=== PATIENT | female | born 1950 | race Caucasian/White ===

== ENCOUNTER 2021-11-04 15:45 | Emergency (ER) | payer SELFPAY ==
[~2021-11-04] VITALS: Wt 80.4 kg
[2021-11-04] MEDS ORDERED: TOPCARE ASPIRIN81 M1 PO (15:55)
[2021-11-04] MEDS ORDERED: COZAAR25 M1 PO (15:55)
[2021-11-04] MEDS ORDERED: NEBIVOLOL HCL5 MG PO (15:55)
[2021-11-04 16:10] LABS: BASO # 0.01 K/mm3 (0.02-0.10); EOS # 0.17 K/mm3 (0.04-0.40); EOS % 3.4 % (1.0-5.0); HEMOGLOBIN 12.9 g/dL (12.5-16.0); LYMPH# 1.77 K/mm3 (1.50-4.00); MEAN CELL VOLUME 92 fl (78-100); MEAN CORPUSCULAR HEMOGLOBIN 30 pg (27-31); MEAN CORPUSCULAR HGB CONC 32 g/dL (33-37); MEAN PLATELET VOLUME 10.1 fl (7.4-10.4); MONO # 0.44 K/mm3 (0.20-0.80); NEU # 2.58 K/mm3 (1.40-6.50); PLATELET COUNT 217 K/mm3 (130-400); RED BLOOD COUNT 4.35 M/mm3 (4.10-5.30); RED CELL DISTRIBUTION WIDTH 14.1 % (11.5-14.5)
[2021-11-04 16:19] LABS: ALBUMIN 3.5 g/dL (3.4-4.8)
[2021-11-04 16:20] LABS: SODIUM 142 mmol/L (136-145)
[2021-11-04 16:21] LABS: CALCIUM 10.1 mg/dL (8.3-10.5)
[2021-11-04 16:22] LABS: GLUCOSE 116 mg/dL (65-105)
[2021-11-04 16:23] LABS: CARBON DIOXIDE 21 mmol/L (23-31)
[2021-11-04 16:27] LABS: AST-SGOT 25 U/L (5-34)
[2021-11-04 16:28] LABS: ALT/SGPT 22 U/L (0-55)
[2021-11-04 16:40] LABS: TROPONIN-I < 0.030 ng/mL (<0.030)
[2021-11-04] MEDS ORDERED: LASIX20 M1 PO ×2 (16:59→17:15)
[2021-11-04] MEDS ORDERED: COZAAR 50MG50 MG/TAB PO (16:59)
[2021-11-04] MEDS ORDERED: MECLIZINE PO ×2 (16:59→17:15)
[2021-11-04] MEDS ORDERED: BYSTOLIC2.5 MG PO ×2 (16:59→17:15)
[2021-11-04] MEDS ORDERED: ZOFRAN ODT4 MG PO ×2 (16:59→17:15)
[2021-11-04 17:00] LABS: TOTAL BILIRUBIN 0.6 mg/dL (0.2-1.2)
[2021-11-04 17:07] VITALS: BP 149/82
[2021-11-04] MEDS ORDERED: LOSARTAN POTASS50 M1 PO (17:15)
== END 2021-11-04 17:08 | disposition home or self-care (01) ==
LOC: ED 15:45
PROVIDERS: Family Medicine
DX: I11.0 Hypertensive heart disease with heart failure (principal); I50.9 Heart failure, unspecified; R60.0 Localized edema

== ENCOUNTER → 2021-11-12 | Outpatient (CLI) | payer SELFPAY ==
[~2021-11-12] MED LIST: BYSTOLIC2.5 MG PO; COZAAR 50MG50 MG/TAB PO; COZAAR25 M1 PO; LASIX20 M1 PO; LOSARTAN POTASS50 M1 PO; MECLIZINE PO; NEBIVOLOL HCL5 MG PO; TOPCARE ASPIRIN81 M1 PO; ZOFRAN ODT4 MG PO
[2021-11-12 13:23] LABS: POTASSIUM 4.1 mmol/L (3.5-5.1)
[2021-11-12 13:24] LABS: CALCIUM 10.9 mg/dL (8.3-10.5)
== END ==
LOC: LAB 12:36
PROVIDERS: Family Medicine
DX: I11.0 Hypertensive heart disease with heart failure (principal); I50.9 Heart failure, unspecified; B07.9 Viral wart, unspecified; L98.9 Disorder of the skin and subcutaneous tissue, unspecified; R60.0 Localized edema

== ENCOUNTER → 2021-11-15 | Outpatient (CLI) | payer SELFPAY | LOC: VAS 13:29 → RAD 13:30 | DX: I11.0 Hypertensive heart disease with heart failure (principal); I50.9 Heart failure, unspecified ==

== ENCOUNTER 2021-11-21 10:00 | Emergency (ER) | payer SELFPAY ==
[~2021-11-21] VITALS: Wt 78.8 kg
[2021-11-21 11:02] LABS: BASO # 0.01 K/mm3 (0.02-0.10); EOS # 0.01 K/mm3 (0.04-0.40); EOS % 0.2 % (1.0-5.0); HEMATOCRIT 36.7 % (37.0-47.0); HEMOGLOBIN 12.1 g/dL (12.5-16.0); LYMPH# 0.73 K/mm3 (1.50-4.00); MEAN CELL VOLUME 89 fl (78-100); MEAN CORPUSCULAR HEMOGLOBIN 29 pg (27-31); MEAN CORPUSCULAR HGB CONC 33 g/dL (33-37); MEAN PLATELET VOLUME 11.2 fl (7.4-10.4); MONO # 0.31 K/mm3 (0.20-0.80); NEU # 2.95 K/mm3 (1.40-6.50); PLATELET COUNT 196 K/mm3 (130-400); RED BLOOD COUNT 4.11 M/mm3 (4.10-5.30); RED CELL DISTRIBUTION WIDTH 13.7 % (11.5-14.5)
[2021-11-21 11:23] LABS: POTASSIUM 3.9 mmol/L (3.5-5.1)
[2021-11-21 11:24] LABS: CALCIUM 10.4 mg/dL (8.3-10.5)
[2021-11-21 11:52] LABS: PH-URINE 5.5 (5.0 - 8.0); URINE APPEARANCE CLEAR; URINE BILIRUBIN NEGATIVE (NEGATIVE); URINE BLOOD 50 ery/uL (NEGATIVE); URINE COLOR YELLOW; URINE GLUCOSE NEGATIVE (NEGATIVE); URINE KETONE NEGATIVE (NEGATIVE); URINE LEUKOCYTE ESTERASE TRACE (NEGATIVE); URINE NITRATE NEGATIVE (NEGATIVE); URINE PROTEIN(semi-quant) 1+ (NEGATIVE); URINE UROBILINOGEN NORMAL (NORMAL)
[2021-11-21] MEDS ORDERED: FAMOTIDINE20 MG PO (13:20)
[2021-11-21] MEDS ORDERED: CEFDINIR300 MG PO (13:20)
[2021-11-21 14:41] VITALS: BP 90/54
== END 2021-11-21 14:45 | disposition home or self-care (01) ==
LOC: ED 10:00
PROVIDERS: Family Medicine
DX: M51.34 Other intervertebral disc degeneration, thoracic region (principal); R82.81 Pyuria; I10 Essential (primary) hypertension; Z20.822 Contact with and (suspected) exposure to COVID-19; Z79.899 Other long term (current) drug therapy
CPT/HCPCS: J0696; J3490; J7040

== ENCOUNTER → 2021-12-15 | Outpatient (CLI) | payer SELFPAY ==
[~2021-12-15] MED LIST changes: +CEFDINIR300 MG PO; +FAMOTIDINE20 MG PO
[2021-12-15 15:05] LABS: URINE APPEARANCE CLEAR; URINE COLOR YELLOW
[2021-12-15 15:06] LABS: URINE BILIRUBIN NEGATIVE (NEGATIVE); URINE BLOOD TRACE (NEGATIVE); URINE GLUCOSE NEGATIVE (NEGATIVE); URINE KETONE NEGATIVE (NEGATIVE); URINE LEUKOCYTE ESTERASE TRACE (NEGATIVE); URINE MUCUS PRESENT (NOT PRESENT); URINE NITRATE NEGATIVE (NEGATIVE); URINE PROTEIN(semi-quant) 1+ (NEGATIVE); URINE UROBILINOGEN NORMAL (NORMAL)
== END ==
LOC: LAB 14:23
PROVIDERS: Family Medicine
DX: Z87.440 Personal history of urinary (tract) infections (principal)

== ENCOUNTER → 2021-12-24 | Outpatient (CLI) | payer SELFPAY | LOC: CARDREHAB 08:54 | DX: R06.02 Shortness of breath (principal); R60.0 Localized edema; R01.1 Cardiac murmur, unspecified | CPT/HCPCS: A9500 ==

== ENCOUNTER → 2022-01-31 | Outpatient (CLI) | payer SELFPAY | LOC: RAD 15:36 → LAB 15:36 | DX: M19.011 Primary osteoarthritis, right shoulder (principal) ==

== ENCOUNTER → 2022-12-03 | Outpatient (CLI) | payer SELFPAY ==
[2022-12-03 11:23] LABS: HEMATOCRIT 43.9 % (37.0-47.0); HEMOGLOBIN 14.3 g/dL (12.5-16.0); RED BLOOD COUNT 4.79 M/mm3 (4.10-5.30); RED CELL DISTRIBUTION WIDTH 13.6 % (11.5-14.5); WHITE BLOOD COUNT 4.1 K/mm3 (4.8-10.8)
[2022-12-03 11:37] LABS: ALBUMIN 4.1 g/dL (3.4-4.8); POTASSIUM 4.4 mmol/L (3.5-5.1)
[2022-12-03 11:38] LABS: CALCIUM 10.3 mg/dL (8.3-10.5)
[2022-12-03 11:41] LABS: TOTAL BILIRUBIN 0.5 mg/dL (0.2-1.2)
== END ==
LOC: LAB 11:04
PROVIDERS: Family Medicine
DX: Z13.1 Encounter for screening for diabetes mellitus (principal); Z13.220 Encounter for screening for lipoid disorders; Z12.9 Encounter for screening for malignant neoplasm, site unspecified; I11.0 Hypertensive heart disease with heart failure; I50.9 Heart failure, unspecified; M19.90 Unspecified osteoarthritis, unspecified site